=== PATIENT | male | born 1940 | race Caucasian/White ===

== ENCOUNTER 2023-09-06 04:37 | Inpatient (IN) | payer MEDICARE, OTHER ==
[2023-09-06 06:07] LABS: #Basophils Less than 0.03 10x3/uL (0.0-0.2); #Eosinphils Less than 0.03 10x3/uL (0.0-0.7); %Basophils 0.2 % (0.0-1.0); %Eosinophils 0.2 % (0.0-10.0); %Lymphocytes 4.6 % (21.0-51.0); %Monocytes 9.4 % (0.0-10.0); %Neutrophils 85.2 % (42.0-75.0); Hematocrit 29.6 % (42.0-52.0); Hemoglobin 9.9 g/dL (14.0-18.0); Mean Corpuscular HGB CONC 33.4 g/dL (32.0-36.0); Mean Corpuscular Hemoglobin 29.8 pg (27.0-31.0); Mean Corpuscular Volume 89.2 fL (78.0-98.0); Mean Platelet Volume 9.7 fL (7.4-10.4); Platelet Count 310 10x3/uL (130-400); Red Blood Cell (RBC) Count 3.32 mill/uL (4.70-6.10)
[2023-09-06 06:18] LABS: INR-International Normal Ratio 1.1
[2023-09-06 06:33] LABS: ALT (SGPT) 161 U/L (8-55); AST (SGOT) 94 U/L (5-34); Albumin 2.9 g/dL (3.4-4.8); Alkaline Phosphatase 135 U/L (40-110); Anion Gap 15 mmol/L (10-20); BUN (Urea Nitrogen) 22 mg/dL (8.4-25.7); Bilirubin, Total 1.4 mg/dL (0.2-1.2); Calc. Creatinine Clearance 0 mL/min (70-130); Calcium 8.9 mg/dL (7.8-10.44); Carbon Dioxide 21 mmol/L (23-31); Chloride 101 mmol/L (98-107); Estimated GFR 59; Globulin 3.3 g/dL (2.4-3.5); Glucose 128 mg/dL (83-110); Magnesium 1.9 mg/dL (1.6-2.6); Potassium 4.4 mmol/L (3.5-5.1); Protein, Total 6.2 g/dL (5.8-8.1); Sodium 133 mmol/L (136-145)
[2023-09-06] MEDS ORDERED: levETIRAcetam 500 MG (5 mL) VIAL ONE (07:39)
[2023-09-06] MEDS ORDERED: Mag-Al 1200 mg/1200 mg/30 ML UDCUP PO PRN (07:50)
[2023-09-06] MEDS ORDERED: Ondansetron PF 4 MG/2 ML Vial IVP PRN (07:50)
[2023-09-06] MEDS ORDERED: niCARdipine 25 MG in Sodium Chloride 0.9% 250 ML 250 ML IVPB PRN ×2 (07:50→09:32)
[2023-09-06] MEDS ORDERED: HumaLOG 300 UNITS/3 ML VIAL SC PRN (08:38)
[2023-09-06] MEDS ORDERED: Dextrose 50% Abboject 50 ML SYRINGE SLOW IVP PRN (08:38)
[2023-09-06] MEDS ORDERED: Glucagon 1 MG/ML KIT IM PRN (08:38)
[2023-09-06] MEDS ORDERED: Dextrose 5% in Water 1,000 ML IV PRN (08:38)
[2023-09-06] MEDS ORDERED: CEFAZOLIN 2 GM in Sodium Chloride 0.9% 100 ML IVPB SCH (09:30)
[2023-09-06 09:34] VITALS: BMI 19.8
[2023-09-06] MEDS: Sodium Chloride 0.9% 1,000 ML IV SCH (09:50)
[2023-09-06] MEDS ORDERED: Vancomycin 1 GM VIAL ONE (14:15)
[2023-09-06] MEDS ORDERED: EPINEPHrine 1 MG/ML VIAL ONE (14:15)
[2023-09-06] MEDS ORDERED: Lidocaine 1% (PF) 30 ML VIAL ONE (14:15)
[2023-09-06] MEDS ORDERED: Thrombin 5000 UNITS/5 ML VIAL ONE (14:16)
[2023-09-06] MEDS ORDERED: Etomidate 40 MG (20 mL) VIAL ONE (15:01)
[2023-09-06] MEDS ORDERED: Lidocaine 1% PF 5 ML VIAL ONE (15:04)
[2023-09-06] MEDS ORDERED: Rocuronium Bromide 10 MG/ML (10ML VIAL) ONE (15:04)
[2023-09-06] MEDS ORDERED: CEFAZOLIN 1 GM VIAL ONE (15:35)
[2023-09-06] MEDS ORDERED: Ondansetron PF 4 MG/2 ML Vial ONE (15:43)
[2023-09-06] MEDS ORDERED: PHENYLEPHRINE-NS 100 MCG/ML 10 ML SYRINGE ONE (15:54)
[2023-09-06] MEDS ORDERED: SUGAMMADEX SODIUM 200 MG/2 ML VIAL ONE (16:06)
[2023-09-06] MEDS: Morphine 2 MG/ML VIAL SLOW IVP PRN (17:08)
[2023-09-06] MEDS: Pantoprazole 40 MG VIAL IVP SCH (20:15)
[2023-09-06] MEDS: levETIRAcetam 500 MG (5 mL) VIAL SLOW IVP SCH (20:15)
[2023-09-06] MEDS ORDERED: Famotidine/PF 20 mg/2ml Vial SLOW IVP SCH (21:00)
[2023-09-07] MEDS: CEFAZOLIN 2 GM in Sodium Chloride 0.9% 100 ML IVPB SCH (00:02)
[2023-09-07 04:23] LABS: #Basophils Less than 0.03 10x3/uL (0.0-0.2); #Eosinphils Less than 0.03 10x3/uL (0.0-0.7); %Basophils 0.2 % (0.0-1.0); %Eosinophils 0.1 % (0.0-10.0); %Lymphocytes 5.8 % (21.0-51.0); %Monocytes 9.7 % (0.0-10.0); %Neutrophils 83.9 % (42.0-75.0); Hematocrit 30.3 % (42.0-52.0); Hemoglobin 9.7 g/dL (14.0-18.0); Mean Corpuscular Hemoglobin 29.3 pg (27.0-31.0); Mean Corpuscular Volume 91.5 fL (78.0-98.0); Mean Platelet Volume 10.1 fL (7.4-10.4); Platelet Count 274 10x3/uL (130-400); RBC Distribution Width 17.3 % (11.5-14.5); Red Blood Cell (RBC) Count 3.31 mill/uL (4.70-6.10)
[2023-09-07 04:43] LABS: ALT (SGPT) 156 U/L (8-55); AST (SGOT) 125 U/L (5-34); Albumin 2.7 g/dL (3.4-4.8); Alkaline Phosphatase 121 U/L (40-110); Anion Gap 19 mmol/L (10-20); BUN (Urea Nitrogen) 26 mg/dL (8.4-25.7); Calc. Creatinine Clearance 42 mL/min (70-130); Calcium 8.6 mg/dL (7.8-10.44); Carbon Dioxide 16 mmol/L (23-31); Chloride 106 mmol/L (98-107); Estimated GFR 57; Globulin 3.1 g/dL (2.4-3.5); Glucose 148 mg/dL (83-110); Potassium 4.7 mmol/L (3.5-5.1); Protein, Total 5.8 g/dL (5.8-8.1); Sodium 136 mmol/L (136-145)
[2023-09-08] MEDS: Acetaminophen 500 MG TAB PO SCH (11:14)
[2023-09-09 05:18] LABS: #Basophils Less than 0.03 10x3/uL (0.0-0.2); %Basophils 0.2 % (0.0-1.0); %Eosinophils 1.2 % (0.0-10.0); %Lymphocytes 9.7 % (21.0-51.0); %Monocytes 13.4 % (0.0-10.0); %Neutrophils 74.9 % (42.0-75.0); Hematocrit 27.2 % (42.0-52.0); Hemoglobin 9.1 g/dL (14.0-18.0); Mean Corpuscular HGB CONC 33.5 g/dL (32.0-36.0); Mean Corpuscular Hemoglobin 30.1 pg (27.0-31.0); Mean Corpuscular Volume 90.1 fL (78.0-98.0); Mean Platelet Volume 10.1 fL (7.4-10.4); Platelet Count 238 10x3/uL (130-400); RBC Distribution Width 17.2 % (11.5-14.5); Red Blood Cell (RBC) Count 3.02 mill/uL (4.70-6.10)
[2023-09-09 05:41] LABS: ALT (SGPT) 34 U/L (8-55); AST (SGOT) 84 U/L (5-34); Albumin 2.6 g/dL (3.4-4.8); Alkaline Phosphatase 106 U/L (40-110); Anion Gap 11 mmol/L (10-20); BUN (Urea Nitrogen) 22 mg/dL (8.4-25.7); Bilirubin, Total 1.2 mg/dL (0.2-1.2); Calc. Creatinine Clearance 55 mL/min (70-130); Calcium 8.3 mg/dL (7.8-10.44); Carbon Dioxide 19 mmol/L (23-31); Chloride 109 mmol/L (98-107); Estimated GFR 84; Globulin 3.1 g/dL (2.4-3.5); Glucose 135 mg/dL (83-110); Potassium 3.9 mmol/L (3.5-5.1); Protein, Total 5.7 g/dL (5.8-8.1); Sodium 135 mmol/L (136-145)
[2023-09-09] MEDS: hydrALAZINE 20 MG/ML VIAL SLOW IVP SCH (12:51)
[2023-09-09] MEDS: Acetaminophen 325 MG TAB PO PRN (12:52)
[2023-09-09] MEDS: hydrALAZINE 25 MG TAB PO SCH (16:00)
[2023-09-09 19:51] VITALS: TEMP 98.5
[2023-09-09 20:27] VITALS: BP 115/56
== END 2023-09-09 20:50 | DRG 27 ==
LOC: ERS 04:37 → CCU 09:30
PROVIDERS: ADMIT Family Medicine; ATTEND Family Medicine
PROC: 009430Z Drainage of Intracranial Subdural Space with Drainage Device, Percutaneous Approach (ICD-10-PCS; principal; 2023-09-06)
DX: S06.5XAA Traumatic subdural hemorrhage with loss of consciousness status unknown, initial encounter (principal); E11.9 Type 2 diabetes mellitus without complications; S06.1XAA Traumatic cerebral edema with loss of consciousness status unknown, initial encounter; I11.0 Hypertensive heart disease with heart failure; I50.9 Heart failure, unspecified; E03.9 Hypothyroidism, unspecified; R56.9 Unspecified convulsions; E78.00 Pure hypercholesterolemia, unspecified; K21.9 Gastro-esophageal reflux disease without esophagitis; Z95.1 Presence of aortocoronary bypass graft; Z95.0 Presence of cardiac pacemaker; Z98.890 Other specified postprocedural states; Z87.891 Personal history of nicotine dependence; Z86.16 Personal history of COVID-19; Z88.8 Allergy status to other drugs, medicaments and biological substances
CPT/HCPCS: 36415; 36416; 70450; 80053; 83735; 85025; 85610; 93005; 95711; 95819; 96374; C1713; C1889; C9113; J0171; J0360; J0690; J1953; J2001; J2272; J2405; J3370; J3490; J7050